=== PATIENT | male | born 2000 | race Two or more races ===

== ENCOUNTER 2024-11-12 15:35 | Emergency (ER) | payer OTHER ==
[~2024-11-12] VITALS: Ht 160 cm; Wt 52.2 kg
[2024-11-12 15:51] VITALS: TEMP 97.6
[2024-11-12 16:48] VITALS: BP 140/82; O2SAT 98
== END 2024-11-12 17:00 | disposition home or self-care (01) ==
LOC: ER 15:40
DX: S01.111A Laceration without foreign body of right eyelid and periocular area, initial encounter (principal); F17.200 Nicotine dependence, unspecified, uncomplicated; Z60.2 Problems related to living alone; W18.39XA Other fall on same level, initial encounter; Y93.89 Activity, other specified; Y92.89 Other specified places as the place of occurrence of the external cause; Y99.8 Other external cause status